=== PATIENT | male | born 1980 | race Caucasian/White ===

== ENCOUNTER 2019-03-05 20:56 | Emergency (ER) | payer BC ==
[~2019-03-05] VITALS: Ht 182.9 cm; Wt 95.5 kg
[2019-03-05 20:58] VITALS: BP 188/117
[2019-03-05] MEDS ORDERED: ondansetron/PF 4mg/2ml inj IV ONE (21:05)
[2019-03-05] MEDS ORDERED: glucagon, human recombinant 1mg kit IV ONE (21:05)
--- NOTE | 2019-03-05 22:12 | NUR ---
pt was given zofran and glucoagon. He is still having trouble swallowing secretions. He does state he was able to burp. GI will be coming for patient soon.
--- NOTE | 2019-03-05 22:15 | NUR ---
PT JUST COUGHED, AND WAS ABLE TO CLEAR THE FOOD BOLUS. HE IS ABLE TO SWALLOW WATER AND STATES IT FEELS LIKE IT HAS CLEARED. MD AWARE AND GI TEAM RECONTACTED.
== END 2019-03-05 22:25 | disposition home or self-care (01) ==
LOC: ER 20:57
DX: T17.228A Food in pharynx causing other injury, initial encounter (principal); Y92.89 Other specified places as the place of occurrence of the external cause
CPT/HCPCS: 70360; 96374; 96375; 99283; J1610; J2405

== ENCOUNTER 2022-06-28 10:06 | Outpatient (CLI) | payer BC | END 2022-06-28 23:59 | disposition home or self-care (01) | LOC: RAD 10:06 | PROVIDERS: ATTEND Nurse Practitioner Family | DX: J32.0 Chronic maxillary sinusitis (principal); J32.1 Chronic frontal sinusitis; J32.3 Chronic sphenoidal sinusitis | CPT/HCPCS: 70486 ==